=== PATIENT | male | born 1960 | race Caucasian/White ===

== ENCOUNTER 2023-03-26 10:30 | Outpatient (AMB) | payer OTHER, SELFPAY ==
--- NOTE | 2023-03-26 10:28 | MHC.OFFWIV ---
Intake Vital Signs 03/26/23 10:32 Height 5 ft 7 in Weight 179 lb BMI 28.0 BP 126/72 Blood Pressure Location Rt brachial Position Sitting Pulse 73 Pulse Source Pulse Oximeter Temp 97.9 F Temp Source Temporal Artery Scan Pulse Oximetry (%) 99 Oxygen Delivery Method Room Air Intake Visit Reasons: EST/eye irritation/pink eye? Intake Note: pt is here today for eye irritation/pink eye Do you need a note to return to daycare/school/sports/work: Yes HPI HPI Comments History of Present Illness Details The patient presents to urgent care for evaluation right eye irritation redness and drainage. He states that his grandson had pinkeye and recently got over it. No visual changes Review of Systems Const Denies headache(s) Eyes Denies change in vision, Denies dry eyes, Denies floaters, Denies irritation, Reports itchy eyes and Denies eye pain ENT Reports no additional complaints and Denies headache(s) Card Reports no additional complaints Musc Denies numbness Skin/Breast Denies skin pain, Denies skin swelling and Denies unusual bruising Neuro Denies headache(s), Denies focal weakness and Denies numbness Aller/Immun Reports itchy eyes Physical Exam Vital Signs: Last Vital Signs Temp 97.9 F 03/26/23 10:32 Pulse 73 03/26/23 10:32 BP 126/72 03/26/23 10:32 Pulse Ox 99 03/26/23 10:32 Oxygen Delivery Method Room Air 03/26/23 10:32 BMI result Body Mass Index 28.0 Const General: healthy appearing and no acute distress Orientation/consciousness: patient oriented x3 Eyes Other: Right eye injected with lower eyelid erythema and edema. Some scant purulent drainage noted inside the lower eyelid Eyelids: Yes eyelids normal Conjunctivae: conjunctival abnormal bilateral conjunctival injection EOM: EOMs intact bilaterally Neuro General: patient oriented x3 Assessment & Plan Assessment & Plan (1) Conjunctivitis: Code(s): H10.9 - Unspecified conjunctivitis Plan Assessment: Conjunctivitis Patient's symptoms are consistent with conjunctivitis. We will treat with ophthalmic antibiotics. Patient will be given written and verbal instructions. Coding Level of Care Code Est Pt Level 3 (04622) Diagnoses Conjunctivitis H10.9
[2023-03-26 10:32] VITALS: BP 126/72; PULSE 73; TEMP 36.6; O2SAT 99; BMI 28.0
== END 2023-03-26 11:13 | disposition home or self-care (01) ==
PROVIDERS: Visit Provider Emergency Medicine
DX: H10.9 Unspecified conjunctivitis (principal)
CPT/HCPCS: 99213